=== PATIENT | female | born 1950 | race Two or more races ===

== ENCOUNTER 2016-12-24 17:11 | Emergency (ER) | payer MEDICARE, BC ==
[~2016-12-24] VITALS: Ht 170.2 cm; Wt 66.7 kg
[~2016-12-24 17:11] MED LIST: HYOS0.1275 SL; PANT40TA4 PO
--- NOTE | 2016-12-24 17:11 | NUR ---
BIB SON SENT BY DR LOJA FOR US OF THE ABDOMEN, PT C/O EPIGASTRIC PAIN RADIATES TO RLQ ABD STARTED AROUND 4AM TODAY. AWAITING MD ORDER
--- NOTE | 2016-12-24 17:25 | NUR ---
LAC #20 IV ACCESS. BLOOD SAMPLE COLLECTED SENT TO LAB
--- NOTE | 2016-12-24 17:30 | NUR ---
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
[2016-12-24 17:47] LABS: BASOPHILS % (AUTO) 0.2 % (0.0-2.0); EOSINOPHILS % (AUTO) 0.2 % (0.0-6.0); HEMATOCRIT 36 % (33-45); HEMOGLOBIN 12.1 g/dL (11.5-14.8); LYMPHOCYTES # (AUTO) 1.4 /CMM (0.8-4.8); LYMPHOCYTES % (AUTO) 18.5 % (20.0-44.0); MEAN CORPUSCULAR HEMOGLOBIN 33 PG (26.0-33.0); MEAN CORPUSCULAR HGB CONC 34 g/dl (31.0-36.0); MEAN CORPUSCULAR VOLUME 96 fL (82-100); MONOCYTES # (AUTO) 0.3 /CMM (0.1-1.30); MONOCYTES % (AUTO) 4.2 % (2.0-12.0); NEUTROPHILS # (AUTO) 5.7 /CMM (1.8-8.9); NEUTROPHILS % (AUTO) 76.9 % (43.0-81.0); PLATELET COUNT (AUTO) 339 /CMM (150-450); RDW COEFFICIENT OF VARIATION 13.7 (11.5-15.0); RED BLOOD CELL COUNT(AUTO) 3.72 MIL/uL (4.0-5.2); WHITE BLOOD COUNT (AUTO) 7.4 K/uL (4.3-11.0)
[2016-12-24 17:58] LABS: CALCIUM, SERUM 9.5 mg/dL (8.5-10.1); CREATININE 0.8 mg/dL (0.6-1.3); POTASSIUM 4.2 mmol/L (3.5-5.1)
[2016-12-24] MEDS ORDERED: ONDANSETRON HCL/PF - ER 4 MG/2 ML VIAL IV ONE (18:00)
[2016-12-24] MEDS ORDERED: PANTOPRAZOLE 40 MG VIAL IV ONE (18:00)
[2016-12-24] MEDS ORDERED: MORPHINE SULFATE INJ 2 MG/ML DISP.SYRIN IV ONE (18:00)
[2016-12-24 18:04] LABS: ALBUMIN 3.7 g/dL (3.4-5.0); BILIRUBIN,DIRECT 0.1 mg/dL (0.0-0.2); BILIRUBIN,TOTAL 0.3 mg/dL (0.2-1.0); TOTAL PROTEIN, SERUM 7.7 g/dL (6.4-8.2)
[2016-12-24] MEDS ORDERED: MORPHINE SULFATE INJ 2 MG/ML DISP.SYRIN ONE (18:15)
[2016-12-24] MEDS ORDERED: PANTOPRAZOLE 40 MG VIAL ONE (18:15)
[2016-12-24] MEDS ORDERED: ONDANSETRON HCL/PF 4 MG/2 ML VIAL ONE (18:15)
--- NOTE | 2016-12-24 18:53 | NUR ---
URINE SAMPLE COLLECTED SENT TO LAB
[2016-12-24 18:57] LABS: APPEARANCE,URINE Slightly Cloudy (CLEAR); BILIRUBIN,URINE Negative (NEGATIVE); BLOOD, URINE Small Ery/uL (NEGATIVE); COLOR,URINE Dark (YELLOW); KETONES,URINE Negative (NEGATIVE); LEUKOCYTE ESTERASE ,URINE Trace (NEGATIVE); NITRITE, URINE Negative (NEGATIVE); PH,URINE 5.5 (5.0-8.0); PROTEIN,URINE Trace mg/dl (NEGATIVE); UGLUCOSE Negative (NEGATIVE); UROBILINOGEN,URINE 0.2 EU/dL (0.2)
[2016-12-24 19:09] LABS: ADD URINE CULTURE YES; BACTERIA,URINE None seen /HPF (None Seen); RBC,URINE 0-2 /HPF (0-2)
[2016-12-24 19:10] LABS: SQUAMOUS EPITHELIAL CELL,UR Few /HPF (None Seen)
--- NOTE | 2016-12-24 20:13 | NUR ---
IV removed. Catheter intact and site benign. Pressure and 4x4 applied to site. No bleeding noted.
--- NOTE | 2016-12-24 20:13 | NUR ---
Patient discharged to home in stable condition. Written and verbal after care instructions given. Patient verbalizes understanding of instruction.
[2016-12-24 20:14] VITALS: BP 149/96
== END 2016-12-24 20:15 | disposition home or self-care (01) ==
LOC: ER 17:13
DX: R10.13 Epigastric pain (principal); C56.9 Malignant neoplasm of unspecified ovary; Z90.710 Acquired absence of both cervix and uterus
CPT/HCPCS: 36415; 76705; 80048; 80076; 81001; 83690; 85025; 87086; 96374; 96375; 99285; A4606; C9113; J2270; J2405; 81000-TC; Z7610

== ENCOUNTER 2016-12-25 14:00 | Emergency (ER) | payer MEDICARE, BC ==
[~2016-12-25] VITALS: Ht 170.2 cm; Wt 66.7 kg
--- NOTE | 2016-12-25 14:30 | NUR ---
PT BIB SON C/O N/V AND INTERMITTENT EPIGASTRIC ABD PAIN SINCE YESTERDAY. PT REPORTS SHE WAS SEEN IN THE ER AND BY HER PCP DR LOJA, HAD A "CLEAR ULTRASOUND", AND "DR LOJA SENT ME HERE FOR A CAT SCAN". NAD NOTED. RESP EVEN UNLABORED. SKIN WARM NONDIAPHORETIC. DENIES DIARRHEA. DENIES BLOOD IN VOMIT OR STOOL. PT JUST WENT TO THE RESTROOM AND DID NOT GIVE A URINE SAMPLE, STATING "I GAVE ONE YESTERDAY". IN ER BED 08.
[2016-12-25] MEDS ORDERED: ONDANSETRON HCL/PF 4 MG/2 ML VIAL ONE ×2 (14:53→18:59)
[2016-12-25] MEDS ORDERED: IV NS 0.9% 1,000 ML ONE (14:54)
[2016-12-25] MEDS ORDERED: IV SET PRIMARY 1 EA INFUS.SET MC ONE (14:54)
[2016-12-25] MEDS ORDERED: ONDANSETRON HCL/PF 4 MG/2 ML VIAL IVP ONE (15:00)
[2016-12-25] MEDS ORDERED: IV NS 0.9% 1,000 ML BAG IV ONE (15:00)
[2016-12-25] MEDS ORDERED: IV NS 0.9% 250 ML IV ONE (15:07)
[2016-12-25] MEDS ORDERED: CT SWABBABLE VALVE TRANS SET 1 EA INFUS.SET MC ONE (15:08)
[2016-12-25] MEDS ORDERED: IOHEXOL-300 100 ML VIAL IV ONE (15:08)
--- NOTE | 2016-12-25 15:09 | NUR ---
PT TRANSPORTED TO CT IN STABLE CONDITION
[2016-12-25 15:28] LABS: BASOPHILS # (AUTO) 0.2 /CMM (0.0-0.2); BASOPHILS % (AUTO) 1.7 % (0.0-2.0); CALCIUM, SERUM 9.7 mg/dL (8.5-10.1); CREATININE 0.7 mg/dL (0.6-1.3); EOSINOPHILS % (AUTO) 0.1 % (0.0-6.0); HEMATOCRIT 37 % (33-45); HEMOGLOBIN 12.4 g/dL (11.5-14.8); LYMPHOCYTES % (AUTO) 10.6 % (20.0-44.0); MEAN CORPUSCULAR HEMOGLOBIN 32 PG (26.0-33.0); MEAN CORPUSCULAR HGB CONC 33 g/dl (31.0-36.0); MEAN CORPUSCULAR VOLUME 96 fL (82-100); MONOCYTES # (AUTO) 0.5 /CMM (0.1-1.30); MONOCYTES % (AUTO) 5.3 % (2.0-12.0); NEUTROPHILS # (AUTO) 7.4 /CMM (1.8-8.9); NEUTROPHILS % (AUTO) 82.3 % (43.0-81.0); PLATELET COUNT (AUTO) 327 /CMM (150-450); RDW COEFFICIENT OF VARIATION 13.8 (11.5-15.0); WHITE BLOOD COUNT (AUTO) 9.1 K/uL (4.3-11.0)
[2016-12-25 15:30] LABS: INR 0.93 (0.87-1.13); PROTHROMBIN TIME 9.7 SECS (9.5-12.7)
[2016-12-25 15:35] LABS: ALBUMIN 3.9 g/dL (3.4-5.0); BILIRUBIN,DIRECT 0.1 mg/dL (0.0-0.2); BILIRUBIN,TOTAL 0.4 mg/dL (0.2-1.0); TOTAL PROTEIN, SERUM 8.3 g/dL (6.4-8.2)
--- NOTE | 2016-12-25 15:56 | NUR ---
RESTING QUIETLY, NAD NOTED. ALL NEEDS ATTENDED TO.
[2016-12-25] MEDS ORDERED: PIPERACILLIN /TAZOBACTAM 3.375 G VIAL IV ONE (16:49)
[2016-12-25] MEDS ORDERED: IV SET PRIMARY PUMP SET 1 EA INFUS.SET MC ONE (16:49)
[2016-12-25] MEDS ORDERED: PIPERACILLIN /TAZOBACTAM 3.375 G in IV D5W 50 ML IV ONE (17:00)
--- NOTE | 2016-12-25 17:07 | NUR ---
PT AMBULATED TO RESTROOM WITH STEADY GAIT. NAD NOTED. REFUSES NG TUBE AT THIS TIME. URINE SAMPLE OBTAINED. KEPT NPO. ALL NEEDS ATTENDED TO.
[2016-12-25 17:21] LABS: APPEARANCE,URINE Clear (CLEAR); BILIRUBIN,URINE Negative (NEGATIVE); BLOOD, URINE Small Ery/uL (NEGATIVE); COLOR,URINE Yellow (YELLOW); KETONES,URINE 15 (NEGATIVE); LEUKOCYTE ESTERASE ,URINE Negative (NEGATIVE); NITRITE, URINE Negative (NEGATIVE); PH,URINE 6.5 (5.0-8.0); PROTEIN,URINE Negative (NEGATIVE); UGLUCOSE Negative (NEGATIVE); UROBILINOGEN,URINE 0.2 EU/dL (0.2)
[2016-12-25 17:27] LABS: RBC,URINE 0-2 /HPF (0-2)
[2016-12-25 17:28] LABS: ADD URINE CULTURE NO; BACTERIA,URINE None seen /HPF (None Seen); SQUAMOUS EPITHELIAL CELL,UR Moderate /HPF (None Seen); WBC,URINE 0-2 /HPF (0-3)
--- NOTE | 2016-12-25 18:22 | NUR ---
NG TUBE INSERTED 16FR L NARE TO 59CM, SUCCESSFUL ON FIRST TRY. PLACEMENT VERIFIED BY AUSCULTATION AND ASPIRATION. SET TO LOW INTERMITTENT SUCTION.
--- NOTE | 2016-12-25 18:30 | NUR ---
PATIENT ACCEPTED AT [facility], ROOM#[id number], RN TO RN REPORT
--- NOTE | 2016-12-25 18:31 | NUR ---
CALLED [facility] FOR TRANSPORTATION GOING TO [facility], ETA 40 MIN
--- NOTE | 2016-12-25 18:46 | NUR ---
CALLED TO GIVE REPORT. THE [facility] NURSE WILL NOT TAKE REPORT "BECAUSE THE ROOM IS NOT CLEAN" AND ASKED ME TO CALL BACK IN 30 MINUTES.
[2016-12-25] MEDS ORDERED: MORPHINE SULFATE INJ 2 MG/ML DISP.SYRIN ONE (18:59)
--- NOTE | 2016-12-25 18:59 | NUR ---
NEW ROOM # [id number]. REPORT GIVEN TO MANDIE ANDRE FOR ADMISSION
[2016-12-25 19:00] VITALS: BP 158/90
--- NOTE | 2016-12-25 19:15 | NUR ---
PT TRANSPORTED TO [facility] IN STABLE CONDITION VIA [employer]. ALL PAPERWORK WITH [employer].
[2016-12-25] MEDS ORDERED: MORPHINE SULFATE INJ 2 MG/ML DISP.SYRIN IV ONE (19:30)
[2016-12-25] MEDS ORDERED: ONDANSETRON HCL/PF - ER 4 MG/2 ML VIAL IV ONE (19:30)
== END 2016-12-25 19:19 | disposition short-term general hospital (02) ==
LOC: ER 14:04
DX: K56.60 Unspecified intestinal obstruction (principal); C56.9 Malignant neoplasm of unspecified ovary; Z90.710 Acquired absence of both cervix and uterus; Z90.49 Acquired absence of other specified parts of digestive tract
CPT/HCPCS: 36415; 74160; 80048; 80076; 81001; 83690; 85025; 85730; 96365; 96375; 96376; 99285; A4606; J2270; J2405 ×2; J2543; J7030; J7050; Q9967; 81000-TC; Z7610